=== PATIENT | male | born 1960 | race Caucasian/White ===

== ENCOUNTER 2018-10-08 08:57 | Emergency (ER) | payer SELFPAY ==
[~2018-10-08] VITALS: Ht 177.8 cm; Wt 82.0 kg
[2018-10-08 09:42] LABS: BASOPHILS % 0.6 % (0.0-2.0); EOSINOPHILS % 0.2 % (0.0-5.0); HEMATOCRIT. 39.6 % (42.0-52.0); HEMOGLOBIN. 13.5 g/dL (14.0-18.0); LYMPHOCYTES % 15.2 % (20.0-50.0); MEAN CORPUSCULAR HEMOGLOBIN 32.5 pg (28.0-32.0); MEAN CORPUSCULAR VOLUME 95.6 fL (80.0-94.0); MEAN PLATELET VOLUME 7.1 fl (7.4-10.4); PLATELET 286 x1000/uL (130-400); RED BLOOD CELL COUNT 4.14 mill/uL (4.7-6.1); RED CELL DISTRIBUTION WIDTH 13.5 % (11.6-14.6)
[2018-10-08 09:48] LABS: CHLORIDE 104 mEq/L (98-107)
[2018-10-08 09:53] LABS: ETHANOL BLOOD < 10 mg/dL
[2018-10-08 10:03] LABS: CLARITY URINE CLEAR (CLEAR); COLOR URINE YELLOW (YELLOW); KETONES URINE TRACE (NEGATIVE); LEUKOCYTE ESTERASE URINE NEGATIVE (NEGATIVE); NITRITE URINE NEGATIVE (NEGATIVE); OCCULT BLOOD URINE 2+ (NEGATIVE); PH URINE 6.5 (4.5-8.0); PROTEIN URINE TRACE (NEGATIVE); SPECIFIC GRAVITY URINE 1.019 (1.005-1.030)
[2018-10-08 10:33] LABS: *BENZODIAZEPINES SCREEN URINE NEGATIVE (NEGATIVE)
[2018-10-08 10:34] LABS: *AMPHETAMINES SCREEN URINE PRESUMTIVE POSITIVE (NEGATIVE); *COCAINE SCREEN URINE NEGATIVE (NEGATIVE); CANNABINOID URINE SCREEN PRESUMTIVE POSITIVE (NEGATIVE); METHADONE URINE SCREEN NEGATIVE (NEGATIVE); OPIATES URINE SCREEN NEGATIVE (NEGATIVE); PHENCYCLIDINE URINE SCREEN NEGATIVE (NEGATIVE)
[2018-10-08 10:35] LABS: *BARBITURATES SCREEN URINE NEGATIVE (NEGATIVE)
[2018-10-08] MEDS ORDERED: SODIUM CHLORIDE 0.9% 1,000 ML IV ONE (11:10)
[2018-10-08 12:11] VITALS: BP 140/94
== END 2018-10-08 12:56 | disposition home or self-care (01) ==
LOC: ER 08:57
DX: R41.82 Altered mental status, unspecified (principal); I10 Essential (primary) hypertension; F10.129 Alcohol abuse with intoxication, unspecified; Y90.0 Blood alcohol level of less than 20 mg/100 ml
CPT/HCPCS: 36415; 80305; 80320; 96360; 99284; G0480

== ENCOUNTER 2019-03-29 20:11 | Emergency (ER) | payer SELFPAY ==
[~2019-03-29] VITALS: Ht 167.6 cm; Wt 68.0 kg
[2019-03-29] MEDS ORDERED: KETOROLAC 60MG/2ML VIAL IM STA (22:25)
[2019-03-29] MEDS ORDERED: CEFAZOLIN 1000MG PREMIX 50 ML IV ONE (23:45)
[2019-03-29] MEDS ORDERED: TETANUS, DIPHTHERIA, PERTUSSIS VAC/PF 0.5ML (>7YR OLD) IM ONE (23:45)
[2019-03-30 00:53] VITALS: BP 114/72
== END 2019-03-30 00:55 | disposition home or self-care (01) ==
LOC: ER 20:11
DX: S62.525A Nondisplaced fracture of distal phalanx of left thumb, initial encounter for closed fracture (principal); F12.10 Cannabis abuse, uncomplicated; W18.39XA Other fall on same level, initial encounter; Y93.89 Activity, other specified; Y92.89 Other specified places as the place of occurrence of the external cause; Y99.8 Other external cause status
CPT/HCPCS: 29125; 73130; 90471; 90715; 96365; 96372; 99283; J0690; J1885

== ENCOUNTER 2021-06-25 10:59 | Emergency (ER) | payer MEDICAID ==
[~2021-06-25] VITALS: Ht 170.2 cm; Wt 70.0 kg
[2021-06-25] MEDS ORDERED: CYCLOBENZAPRINE 10MG TABLET PO ONE (12:00)
[2021-06-25] MEDS ORDERED: ACETAMINOPHEN 325MG TABLET PO ONE (12:00)
[2021-06-25 12:25] VITALS: BP 146/96
[2021-06-25] MEDS ORDERED: IBUP-2029 MT (14:33)
[2021-06-25] MEDS ORDERED: IBUP-2028 MT (23:11)
== END 2021-06-25 12:26 | disposition home or self-care (01) ==
LOC: ER 11:19
DX: M54.2 Cervicalgia (principal)
CPT/HCPCS: 99283

== ENCOUNTER 2021-06-25 13:35 | Emergency (ER) | payer MEDICAID ==
[~2021-06-25] VITALS: Ht 177.8 cm; Wt 70.0 kg
[2021-06-25] MEDS ORDERED: IBUP-2029 MT (14:33)
[2021-06-25 15:05] VITALS: BP 127/66
[2021-06-25] MEDS ORDERED: IBUP-2028 MT (23:11)
== END 2021-06-25 15:06 | disposition home or self-care (01) ==
LOC: ER 13:35
DX: M54.2 Cervicalgia (principal); F12.10 Cannabis abuse, uncomplicated
CPT/HCPCS: 99281

== ENCOUNTER 2021-06-25 18:05 | Emergency (ER) | payer MEDICAID ==
[~2021-06-25] VITALS: Ht 177.8 cm; Wt 80.0 kg
[~2021-06-25 18:05] MED LIST: IBUP-2029 MT
[2021-06-25] MEDS ORDERED: KETOROLAC 60MG/2ML VIAL IM ONE (19:30)
[2021-06-25] MEDS ORDERED: IBUP-2028 MT (23:11)
[2021-06-25 23:45] VITALS: BP 130/70
== END 2021-06-25 23:45 | disposition home or self-care (01) ==
LOC: ER 18:05
DX: M54.2 Cervicalgia (principal); M47.892 Other spondylosis, cervical region; F12.10 Cannabis abuse, uncomplicated
CPT/HCPCS: 72040; 72125; 93005; 96372; 99285; J1885

== ENCOUNTER 2021-06-27 09:48 | Emergency (ER) | payer MEDICAID ==
[~2021-06-27] VITALS: Ht 167.6 cm; Wt 64.0 kg
[~2021-06-27 09:48] MED LIST changes: +IBUP-2028 MT
[2021-06-27 10:02] VITALS: BP 143/91
[2021-06-27] MEDS ORDERED: ACETAMINOPHEN 325MG TABLET PO ONE (10:15)
[2021-06-27] MEDS ORDERED: LIDO700A15 TP (10:17)
== END 2021-06-27 11:11 | disposition home or self-care (01) ==
LOC: ER 09:48
DX: M54.2 Cervicalgia (principal); R03.0 Elevated blood-pressure reading, without diagnosis of hypertension; F15.90 Other stimulant use, unspecified, uncomplicated; F12.90 Cannabis use, unspecified, uncomplicated
CPT/HCPCS: 99283

== ENCOUNTER 2021-07-14 15:29 | Emergency (ER) | payer MEDICAID ==
[~2021-07-14] VITALS: Ht 165.1 cm; Wt 75.0 kg
[~2021-07-14 15:29] MED LIST changes: +CEPH500C2 MT; +LIDO700A15 TP
[2021-07-14 15:40] VITALS: BP 120/75
[2021-07-14] MEDS ORDERED: MUPI22OI2 TP (15:55)
== END 2021-07-14 17:48 | disposition home or self-care (01) ==
LOC: ER 15:29
DX: Z48.00 Encounter for change or removal of nonsurgical wound dressing (principal); F12.10 Cannabis abuse, uncomplicated; F15.10 Other stimulant abuse, uncomplicated
CPT/HCPCS: 99283

== ENCOUNTER 2021-07-18 00:19 | Emergency (ER) | payer MEDICAID, OTHER ==
[~2021-07-18] VITALS: Ht 172.7 cm; Wt 70.0 kg
[~2021-07-18 00:19] MED LIST changes: +MUPI22OI2 TP
[2021-07-18 01:17] VITALS: BP 121/81
[2021-07-18] MEDS ORDERED: MINE50OI TP (21:29)
[2021-07-18] MEDS ORDERED: MUPI15CR11 TP (21:29)
[2021-07-18] MEDS ORDERED: IBUP-2028 MT (21:29)
== END 2021-07-18 01:17 | disposition home or self-care (01) ==
LOC: ER 00:25
DX: S11.90XA Unspecified open wound of unspecified part of neck, initial encounter (principal); X58.XXXA Exposure to other specified factors, initial encounter; Y93.89 Activity, other specified; F15.90 Other stimulant use, unspecified, uncomplicated; F12.90 Cannabis use, unspecified, uncomplicated; Y92.89 Other specified places as the place of occurrence of the external cause
CPT/HCPCS: 99281

== ENCOUNTER 2021-07-18 20:57 | Emergency (ER) | payer OTHER ==
[~2021-07-18] VITALS: Ht 165.1 cm; Wt 63.0 kg
[2021-07-18] MEDS ORDERED: MINE50OI TP (21:29)
[2021-07-18] MEDS ORDERED: IBUP-2028 MT (21:29)
[2021-07-18] MEDS ORDERED: MUPI15CR11 TP (21:29)
[2021-07-18 21:38] VITALS: BP 156/105
== END 2021-07-18 22:03 | disposition home or self-care (01) ==
LOC: ER 20:57
DX: S11.90XA Unspecified open wound of unspecified part of neck, initial encounter (principal); X58.XXXA Exposure to other specified factors, initial encounter; Y93.89 Activity, other specified; Y92.89 Other specified places as the place of occurrence of the external cause
CPT/HCPCS: 99283

== ENCOUNTER 2022-01-17 03:04 | Emergency (ER) | payer OTHER ==
[~2022-01-17] VITALS: Ht 165.1 cm; Wt 64.8 kg
[~2022-01-17 03:04] MED LIST changes: +MINE50OI TP; +MUPI15CR11 TP
[2022-01-17 03:23] VITALS: BP 136/85
== END 2022-01-17 07:54 | disposition left against medical advice (07) ==
LOC: ER 03:04
DX: Z53.21 Procedure and treatment not carried out due to patient leaving prior to being seen by health care provider (principal)

== ENCOUNTER 2022-04-05 04:09 | Emergency (ER) | payer OTHER ==
[~2022-04-05] VITALS: Ht 167.6 cm; Wt 65.4 kg
[2022-04-05] MEDS ORDERED: IBUPROFEN 600MG TABLET PO STA (05:06)
[2022-04-05] MEDS ORDERED: CEFTRIAXONE SODIUM 1 G/VIAL IM ONE (05:15)
[2022-04-05] MEDS ORDERED: LIDOCAINE HCL/PF 1% 10 MG/ML 5ML VIAL INFIL ONE (05:15)
[2022-04-05 05:29] VITALS: BP 134/94
[2022-04-05] MEDS ORDERED: SULF1TAB48 PO (05:32)
[2022-04-05] MEDS ORDERED: CETI10TA6 PO (05:32)
[2022-04-05] MEDS ORDERED: MUPI22OI2 TP (05:32)
[2022-04-05] MEDS ORDERED: AMOX1TAB16 PO (05:32)
[2022-04-05] MEDS ORDERED: NAPR-681 MT (05:32)
== END 2022-04-05 05:55 | disposition home or self-care (01) ==
LOC: ER 04:09
DX: S00.01XA Abrasion of scalp, initial encounter (principal); L03.811 Cellulitis of head [any part, except face]; L03.221 Cellulitis of neck; X58.XXXA Exposure to other specified factors, initial encounter; Y93.89 Activity, other specified; Y92.488 Other paved roadways as the place of occurrence of the external cause
CPT/HCPCS: 82962; 96372; 99283; J0696; J3490